=== PATIENT | female | born 1960 | race Caucasian/White ===

== ENCOUNTER 2018-12-08 00:39 | Emergency (ER) | payer BC, OTHER ==
--- NOTE | 2018-12-08 03:24 | ED Physician Documentation ---
<Saleem Fairbanks - Last Filed: 12/08/18 07:56> History of Present Illness - Stated complaint Stated Complaint: WEAKNESS - Chief complaint Chief Complaint: MHE - History obtained from History obtained from: Patient, Family (zfgabq-[id number] (present at bedside)) - History of Present Illness Timing: How many weeks ago (3-4) Pain level now: 0 Improved by: some improvement after restarting medications yesterday - Additonal information Additional information: most of HPI is given by qbinqo-gs-smn; patient has difficulty in articulating HPI due to underlying psychiatric issue. Patient does seem to indicate to me that she feels she needs an adjustment in her medications. Patient's zaysqs-fe-okc says that family recently became aware that patient had stopped taking her medications. They noticed patient was exhibiting increasingly odd behavior over the past 3-4 weeks, such as increasingly frequent and persistent perry, mandaeism preoccupations, wearing odd clothing that were uncharacteristic for patient. Patient stopped seeing her mental health provider last April. Yesterday, twaste-xa-zcu took patient to ED at [facility]) where she was T+R from the ED. Blood tests and UA were unremarkable except for low sodium; she was given IV fluids and cleared for discharge. Zmaqcr-wq-dng says that prescriptions were provided for seroquel, depakote, temazepam, and lorazepam, and that she was given doses of seroquel and lorazepam in ED. On the drive home back to [facility], patient became increasingly anxious and upon getting home, said she wanted to go to ED. Azmjjv-sy-sfs drove patient to ED when patient said she was going to drive herself to ED. Review of Systems Neurologic: denies: Headache Psychiatric: reports: Hallucinations (auditory (voice in head that prevents her from sleeping for months)), Anxiety, Insomnia. denies: Depressed, Suicidal, Homicidal PD PAST MEDICAL HISTORY - Past Medical History Past Medical History: Yes Psych: Depression, Other - Past Surgical History Past Surgical History: No - Present Medications Home Medications: Ambulatory Orders Medication Instructions Recorded Confirmed QUEtiapine [SEROquel] 25 mg PO ONCE 10/21/13 10/21/13 Temazepam 7.5 mg PO 10/21/13 10/21/13 Risperidone [Risperdal M-Tab] 0.5 mg PO Q8HR 10/28/13 10/28/13 Divalproex Sodium [Depakote] 500 mg PO BID #30 tablet. 12/08/18 QUEtiapine [SEROquel] 100 mg PO BID #30 tablet 12/08/18 - Allergies Allergies/Adverse Reactions: Allergies Allergy/AdvReac Type Severity Reaction Status Date / Time No Known Drug Allergies Allergy Verified 10/28/13 18:08 - Social History Does the pt smoke?: No Smoking Status: Never smoker Does the pt drink ETOH?: No Does the pt have substance abuse?: No - Immunizations Immunizations are current?: Yes - POLST Patient has POLST: No PD ED PE NORMAL - Vitals Vital signs reviewed: Yes - General General: Alert and oriented X 3, No acute distress, Well developed/nourished - HEENT HEENT: PERRL, EOMI, Moist mucous membranes - Cardiac Cardiac: RRR, No murmur - Respiratory Respiratory: No respiratory distress, Clear bilaterally - Abdomen Abdomen: Soft, Non tender - Derm Derm: Normal color, Warm and dry Results - Vitals Vitals: Vital Signs - 24 hr 12/08/18 12/08/18 00:52 02:52 Temperature 36.5 C 36.7 C Heart Rate 94 85 Respiratory 18 18 Rate Blood Pressure 128/85 H 128/88 H O2 Saturation 98 98 Oxygen O2 Source Room air PD MEDICAL DECISION MAKING - ED course Complexity details: reviewed old records (records from [facility] faxed to me, reviewed including test results from yesterday), considered differential, d/w patient, d/w family ED course: Patient and family are chiefly concerned whether the medications she is currently on are adequate and appropriate. Zlxxuk-ou-uhv says patient has had "bad experience" with "being committed" and thus patient is worried she will be held against her will. I offered telepsych consult and they are interested in this option. I signed the case out to oncoming ED MD (Dr. Stiles) at end of my shift, awaiting telepsych consult Departure - Departure Disposition: 01 Home, Self Care Clinical Impression: Bipolar affective disorder Qualifiers: Active/Remission status: currently active Current bipolar episode type: manic Current episode severity: severe Psychotic features: without psychotic features Qualified Code(s): F31.13 - Bipolar disorder, current episode manic without psychotic features, severe Condition: Stable Instructions: ED Manic Depression Follow-Up: Your, doctor [Other] Prescriptions: Divalproex Sodium [Depakote] 500 mg PO BID #30 tablet. QUEtiapine [SEROquel] 100 mg PO BID #30 tablet <Anthony Stiles - Last Filed: 12/08/18 12:24> History of Present Illness - Additonal information Additional information: most of HPI is given by zjcjir-ks-zin; patient has difficulty in articulating HPI due to underlying psychiatric issue. Patient does seem to indicate to me that she feels she needs an adjustment in her medications. Patient's pwahus-zu-rqa says that family recently became aware that patient had stopped taking her medications. They noticed patient was exhibiting increasingly odd behavior over the past 3-4 weeks, such as increasingly frequent and persistent perry, mandaeism preoccupations, wearing odd clothing that were uncharacteristic for patient. Patient stopped seeing her mental health provider last April. Yesterday, etvpdi-du-lxi took patient to ED at [facility] where she was T+R from the ED. Blood tests and UA were unremarkable except for low sodium; she was given IV fluids and cleared for discharge. Pqtgqt-kz-adp says that prescriptions were provided for seroquel, depakote, temazepam, and lorazepam, and that she was given doses of seroquel and lorazepam in ED. On the drive home back to [facility], patient became increasingly anxious and upon getting home, said she wanted to go to ED. Exkjqf-li-gnn drove patient to ED when patient said she was going to drive herself to ED. Results - Vitals Vitals: Vital Signs - 24 hr 12/08/18 12/08/18 00:52 02:52 Temperature 36.5 C 36.7 C Heart Rate 94 85 Respiratory 18 18 Rate Blood Pressure 128/85 H 128/88 H O2 Saturation 98 98 Oxygen O2 Source Room air PD MEDICAL DECISION MAKING - ED course ED course: Patient and family are chiefly concerned whether the medications she is currently on are adequate and appropriate. Cysjjj-cy-jrl says patient has had "bad experience" with "being committed" and thus patient is worried she will be held against her will. I offered telepsych consult and they are interested in this option. I signed the case out to oncoming ED MD (Dr. Stiles) at end of my shift, awaiting telepsych consult Tele-psych consultation with Dr. Tristan has revealed the patient to be in a moderate to severe perry with bipolar affective disorder and he has recommended increased doses of medications which the patient has taken. He recommends Depakote 500 twice daily and Seroquel 100 twice daily. These were prescribed for the patient and she has follow-up with a psychiatrist planned.
--- NOTE | 2018-12-08 12:20 | TELEPSYCH PHYS NOTE ---
Telepsych Note - CHIEF COMPLAINT/HX OF PRESENT ILLNESS Cheif Complaint and History of Present Illness: Patient was interviewed using live video with the assistance of on-site staff. Patient Location: [facility] ED Telepsychiatrist Location: [place] Telepsych[facility] Evaluation Shwana Patel 1960 ID/CC/HPI: 57 year-old female with hx bipolar disorder presents to the ED BIB family due to concerns about odd behavior over the last 3-4 weeks including insomnia with high energy, rapid speech, religion preoccupation, wearing odd clothing, impulsive and excessive spending, anxiety, insomnia, and AH voices of goodness in the setting of several months of medication non-compliance. At this time pt is calm and cooperative but she demonstrates rapid/rambling speech. She denies SI/HI/, maintains future orientation and motivation for OP MH treatment. She is fixated on her chronic insomnia. No filemon delusions or thought disorder. She was restarted on low doses of Seroquel and Depakote at [facility] yesterday. 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 Recommendations: 1. D/C to home 2. Rx Seroquel 100mg PO BID 3. Rx Depakote 500mg PO BID 4. D/C Remeron and all other psychotropics 5. Follow-up with OP MH resources urgently Thanks for inviting us to participate in the care of this patient. Douglas Mann MD 12/08/18 @ 13:44 ET - PSYCHIATRIC HX/TREATMENT HX Psychiatric: Depression, Other - MEDICAL HX Does the pt have a hx of MRSA?: No Is Patient ?: No - HOME MEDICATIONS Home Meds (as last confirmed): Patient History Medication Instructions Recorded Confirmed QUEtiapine [SEROquel] 25 mg PO ONCE 10/21/13 10/21/13 Temazepam 7.5 mg PO 10/21/13 10/21/13 Risperidone [Risperdal M-Tab] 0.5 mg PO Q8HR 10/28/13 10/28/13 - ALLERGIES Allergies (as last confirmed): Allergies Allergy/AdvReac Type Severity Reaction Status Date / Time No Known Drug Allergies Allergy Verified 10/28/13 18:08 - TIME SPENT & PROVIDER LOCATION Telepsych consultation conducted via videoconferencing: Yes
[2018-12-08 12:28] VITALS: BP 119/86
== END 2018-12-08 12:31 | disposition home or self-care (01) ==
LOC: ED 00:39
DX: F31.89 Other bipolar disorder (principal); Z91.14 Patient's other noncompliance with medication regimen
CPT/HCPCS: 99283; G0425; Q3014

== ENCOUNTER 2019-02-09 06:53 | Outpatient (CLI) | payer OTHER | END 2019-02-09 06:54 | disposition short-term general hospital (02) | LOC: EMS 06:53 | PROVIDERS: ATTEND Surgery | DX: T43.592A Poisoning by other antipsychotics and neuroleptics, intentional self-harm, initial encounter (principal); R53.83 Other fatigue; R26.81 Unsteadiness on feet | CPT/HCPCS: A0425; A0427 ==

== ENCOUNTER 2019-02-14 13:50 | Outpatient (CLI) | payer SELFPAY | END 2019-02-14 13:51 | disposition EMS.NT | LOC: EMS 13:50 | PROVIDERS: ATTEND Surgery | DX: R45.89 Other symptoms and signs involving emotional state (principal) ==

== ENCOUNTER 2019-02-19 15:21 | Outpatient (CLI) | payer OTHER | END 2019-02-19 15:22 | disposition EMS.NT | LOC: EMS 15:21 | PROVIDERS: ATTEND Surgery | DX: R46.89 Other symptoms and signs involving appearance and behavior (principal) ==

== ENCOUNTER 2019-02-19 17:17 | Emergency (ER) | payer OTHER ==
[2019-02-19 18:09] LABS: MUDS CUTOFF CONCENTRATIONS CUTOFF CONC BELOW:
[2019-02-19 18:11] LABS: BILIRUBIN,URINE NEGATIVE (NEGATIVE); GLUCOSE, URINE (UA) NEGATIVE (NEGATIVE); KETONES,URINE (UA) NEGATIVE (NEGATIVE); LEUKOCYTE ESTERASE, URINE NEGATIVE (NEGATIVE); NITRITE,URINE NEGATIVE (NEGATIVE); OCCULT BLOOD,URINE SMALL (NEGATIVE); PH,URINE 5.5 PH (5.0-7.5); PROTEIN,URINE NEGATIVE (NEGATIVE); UROBILINOGEN,URINE 0.2 (NORMAL) E.U./dL (NORMAL)
[2019-02-19 18:13] LABS: CLARITY,URINE CLEAR (CLEAR)
[2019-02-19 18:18] LABS: BACTERIA,URINE None Seen /HPF (None Seen); RBC,URINE 0-5 /HPF (0-5); SQUAMOUS EPITHELIAL CELL,UR NONE SEEN (<= Few)
[2019-02-19 18:19] LABS: BASOPHILS # (AUTO) 0.1 10^3/uL (0.0-0.1); BASOPHILS % (AUTO) 0.6 %; EOSINOPHILS # (AUTO) 0.1 10^3/uL (0.0-0.7); EOSINOPHILS % (AUTO) 1.1 %; HGB - HEMOGLOBIN 12.1 g/dL (12.0-16.0); LYMPHOCYTES # (AUTO) 2.2 10^3/uL (1.5-3.5); LYMPHOCYTES % (AUTO) 23.7 %; MEAN CORPUSCULAR HEMOGLOBIN 28.6 pg (27.0-31.0); MEAN CORPUSCULAR HGB CONC 34.2 g/dL (32.0-36.0); MEAN CORPUSCULAR VOLUME 83.6 fL (81.0-99.0); MEAN PLATELET VOLUME 6.9 fL (7.9-10.8); MONOCYTES # (AUTO) 0.6 10^3/uL (0.0-1.0); MONOCYTES % (AUTO) 6.8 %; NEUTROPHILS # (AUTO) 6.3 10^3/uL (1.5-6.6); NEUTROPHILS % (AUTO) 67.8 %; PLT - PLATELET COUNT 263 10^3/uL (130-450); RED BLOOD COUNT 4.25 10^6/uL (4.20-5.40); RED CELL DISTRIBUTION WIDTH 15.9 % (12.0-15.0); WHITE BLOOD COUNT 9.3 x10^3/uL (4.8-10.8)
[2019-02-19 18:25] LABS: AMPHETAMINE SCREEN,URINE NEGATIVE (NEGATIVE); BENZODIAZEPINES SCREEN, URINE NEGATIVE (NEGATIVE); COCAINE SCREEN URINE NEGATIVE (NEGATIVE); METHADONE SCREEN, URINE NEGATIVE (NEGATIVE); METHAMPHETAMINES SCREEN, URINE NEGATIVE (NEGATIVE); OPIATE SCREEN, URINE NEGATIVE (NEGATIVE); OXYCODONE SCREEN, URINE NEGATIVE (NEGATIVE); PROPOXYPHENE SCREEN, URINE NEGATIVE (NEGATIVE); TRICYCLIC ANTIDEPRESSANT,URINE NEGATIVE (NEGATIVE)
[2019-02-19 18:34] LABS: ACETAMINOPHEN < 10 ug/mL (10-30); ALBUMIN 3.8 g/dL (3.2-5.5); ALBUMIN/GLOBULIN RATIO 1.2 (1.0-2.2); ALKALINE PHOSPHATASE 60 IU/L (42-121); ALT ALANINE AMINOTRANSFERASE 31 IU/L (10-60); AST ASPARTATE AMINOTRANSFERASE 22 IU/L (10-42); BILIRUBIN,TOTAL 0.5 mg/dL (0.2-1.0); BUN - BLOOD UREA NITROGEN 16 mg/dL (6-20); CALCIUM 9.1 mg/dL (8.5-10.3); CARBON DIOXIDE - CO2 22 mmol/L (21-32); CHLORIDE 97 mmol/L (101-111); CREATININE 0.6 mg/dL (0.4-1.0); GFR - MDRD 103 (>89); GLUCOSE 106 mg/dL (70-100); LIPASE 40 U/L (22-51); SALICYLATE < 6.0 mg/dL; SODIUM 132 mmol/L (135-145); TOTAL PROTEIN 7.1 g/dL (6.7-8.2)
--- NOTE | 2019-02-19 19:37 | ED Physician Documentation ---
PD HPI MHE - Stated complaint Stated Complaint: MHE - Chief complaint Chief Complaint: MHE - History obtained from History obtained from: Patient, Family - History of Present Illness Primary symptom: Suicidal ideation, Other (insomnia, pressured speech) Contributing factors: Family - Treatment prior to arrival Treatment prior to arrival: states she takes her regular meds though family cannot confirm - Additional information Additional information: Pt lives at home alone. She has a hx of bipolar disorder and is on olanzapine, valproic acid and benzos. Her family reports that she has been having bizarre behaviors not sleeping and spending lots of money. There was a report that she threatened SI on [employer]. Pt denies this. Also denies drug or alcohol abuse. Denies SI to me at this time. Review of Systems Ten Systems: 10 systems reviewed and negative Constitutional: reports: Reviewed and negative. denies: Fever Cardiac: reports: Reviewed and negative Respiratory: reports: Reviewed and negative GI: reports: Reviewed and negative Musculoskeletal: reports: Reviewed and negative Neurologic: reports: Reviewed and negative Psychiatric: reports: Depressed, Suicidal, Anxiety, Insomnia PD PAST MEDICAL HISTORY - Past Medical History Past Medical History: Yes Psych: Depression, Other - Past Surgical History Past Surgical History: No - Present Medications Home Medications: Ambulatory Orders Medication Instructions Recorded Confirmed QUEtiapine [SEROquel] 25 mg PO ONCE 10/21/13 10/21/13 RX: Temazepam 7.5 mg PO 10/21/13 10/21/13 Risperidone [Risperdal M-Tab] 0.5 mg PO Q8HR 10/28/13 10/28/13 Divalproex Sodium [Depakote] 500 mg PO BID #30 tablet. 12/08/18 QUEtiapine [SEROquel] 100 mg PO BID #30 tablet 12/08/18 - Allergies Allergies/Adverse Reactions: Allergies Allergy/AdvReac Type Severity Reaction Status Date / Time No Known Drug Allergies Allergy Verified 10/28/13 18:08 - Social History Does the pt smoke?: No Smoking Status: Never smoker Does the pt drink ETOH?: No Does the pt have substance abuse?: No - Immunizations Immunizations are current?: Yes - POLST Patient has POLST: No PD ED PE NORMAL - Vitals Vital signs reviewed: Yes - General General: Alert and oriented X 3, No acute distress, Well developed/nourished - HEENT HEENT: Atraumatic - Neck Neck: Supple, no meningeal sign - Cardiac Cardiac: RRR - Respiratory Respiratory: No respiratory distress - Abdomen Abdomen: Soft, Non distended - Female Female : Deferred - Rectal Rectal: Deferred - Derm Derm: Normal color, Warm and dry, No rash - Neuro Neuro: Alert and oriented X 3 Eye Opening: Spontaneous Motor: Obeys Commands Verbal: Oriented GCS Score: 15 - Psych Psych: Other (some pressured speech, no obvious hallucinations or delusions, pt denies any symptoms) Results - Vitals Vitals: Vital Signs - 24 hr 02/19/19 02/19/19 17:22 21:18 Temperature 36.5 C 36.5 C Heart Rate 99 100 Respiratory 16 17 Rate Blood Pressure 144/87 H 147/71 H O2 Saturation 99 97 Oxygen O2 Source Room air - Labs Labs: Laboratory Tests 02/19/19 02/19/19 02/19/19 17:28 18:01 18:01 WBC 9.3 RBC 4.25 Hgb 12.1 Hct 35.5 L MCV 83.6 MCH 28.6 MCHC 34.2 RDW 15.9 H Plt Count 263 MPV 6.9 L Neut # (Auto) 6.3 Lymph # (Auto) 2.2 Liberty # (Auto) 0.6 Eos # (Auto) 0.1 Baso # (Auto) 0.1 Absolute Nucleated RBC 0.01 Nucleated RBC % 0.1 Sodium 132 L Potassium 4.0 Chloride 97 L Carbon Dioxide 22 Anion Gap 13.0 BUN 16 Creatinine 0.6 Estimated GFR (MDRD) 103 Glucose 106 H Calcium 9.1 Total Bilirubin 0.5 AST 22 ALT 31 Alkaline Phosphatase 60 Total Protein 7.1 Albumin 3.8 Globulin 3.3 Albumin/Globulin Ratio 1.2 Lipase 40 TSH Urine Color YELLOW Urine Clarity CLEAR Urine pH 5.5 Ur Specific Huntley <=1.005 Urine Protein NEGATIVE Urine Glucose (UA) NEGATIVE Urine Ketones NEGATIVE Urine Occult Blood SMALL H Urine Nitrite NEGATIVE Urine Bilirubin NEGATIVE Urine Urobilinogen 0.2 (NORMAL) Ur Leukocyte Esterase NEGATIVE Urine RBC 0-5 Urine WBC 0-3 Ur Squamous Epith Cells NONE SEEN Urine Bacteria None Seen Ur Microscopic Review INDICATED Urine Culture Comments NOT INDICATED Last Dose Date Last Dose Time Salicylates < 6.0 Urine Opiates Screen NEGATIVE Ur Oxycodone Screen NEGATIVE Urine Methadone Screen NEGATIVE Ur Propoxyphene Screen NEGATIVE Acetaminophen < 10 L Ur Barbiturates Screen NEGATIVE Valproic Acid Ur Tricyclics Screen NEGATIVE Ur Phencyclidine Scrn NEGATIVE Ur Amphetamine Screen NEGATIVE U Methamphetamines Scrn NEGATIVE U Benzodiazepines Scrn NEGATIVE Urine Cocaine Screen NEGATIVE U Cannabinoids Screen NEGATIVE Ethyl Alcohol < 5.0 02/19/19 02/19/19 18:01 18:01 WBC RBC Hgb Hct MCV MCH MCHC RDW Plt Count MPV Neut # (Auto) Lymph # (Auto) Liberty # (Auto) Eos # (Auto) Baso # (Auto) Absolute Nucleated RBC Nucleated RBC % Sodium Potassium Chloride Carbon Dioxide Anion Gap BUN Creatinine Estimated GFR (MDRD) Glucose Calcium Total Bilirubin AST ALT Alkaline Phosphatase Total Protein Albumin Globulin Albumin/Globulin Ratio Lipase TSH 2.89 Urine Color Urine Clarity Urine pH Ur Specific Huntley Urine Protein Urine Glucose (UA) Urine Ketones Urine Occult Blood Urine Nitrite Urine Bilirubin Urine Urobilinogen Ur Leukocyte Esterase Urine RBC Urine WBC Ur Squamous Epith Cells Urine Bacteria Ur Microscopic Review Urine Culture Comments Last Dose Date Not Reportable Last Dose Time Not Reportable Salicylates Urine Opiates Screen Ur Oxycodone Screen Urine Methadone Screen Ur Propoxyphene Screen Acetaminophen Ur Barbiturates Screen Valproic Acid 85.3 Ur Tricyclics Screen Ur Phencyclidine Scrn Ur Amphetamine Screen U Methamphetamines Scrn U Benzodiazepines Scrn Urine Cocaine Screen U Cannabinoids Screen Ethyl Alcohol stable labs PD MEDICAL DECISION MAKING - ED course Complexity details: reviewed results, considered differential, d/w patient, d/w family ED course: ddx - manic depression, SI, electrolyte abnormality, valproic acid toxicity or underdosing, drug abuse 58 y/o F with manic depression, pressured speech reports of insomnia and SI Pt medically cleared and awaiting telepsych eval Telepsych evaluated the pt and feel she has familial and friend social support and is reasonable, compliant with meds, stable and not suicidal. I agree and feel she is stable for outpt f/u. Departure - Departure Disposition: 01 Home, Self Care Clinical Impression: Bipolar disorder Condition: Stable Record reviewed to determine appropriate education?: Yes Instructions: ED Manic Depression Follow-Up: your, doctor [Other] Discharge Date/Time: 02/19/19 21:21
[2019-02-19 19:44] LABS: VALPROIC ACID (DEPAKOTE) 85.3 ug/mL
--- NOTE | 2019-02-19 21:07 | TELEPSYCH PHYS NOTE ---
Telepsych Note - CHIEF COMPLAINT/HX OF PRESENT ILLNESS Cheif Complaint and History of Present Illness: ID/CC: This is a 58 yo female who presents c history of bipolar disorder and depression. HPI: She is brought by family who are concerned due to her bizarre behavior and noncompliance c medications.She was seen c two friends who were present during the interview and give collateral. She is on VPA and Zyprexa The pt indicates that she has a history of multiple hospitalizations in the past. She states that her medications have recently changed adn that she has a new psychiatrist. She states that she has been taking her meds. She was brought by the finnish rubber who was called by daughter. She istates that she has been taking her medications since her discharge from the hospital about a week ago. She denies any current SI and HI and has no history of suicide attempts. Denies access to firearms, no previous history of suicide attempts. Sleep has been good. Appetite has been good also. Energy level has been OK. Concentration has been OK. Psych history: States that she has been in treatment for about 6 years. Has had several hospitalizations. She states that she has been on multiple medications but that this combination is helpful. On 1000 mg of Depakote, does not know what her Zyprexa dose is. SHx: Lives c 16 yo daughter intermittently. Daughter is supportive. She also has a 28 yo daughter. 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 She denies any substance abuse issues. She is . FHx: Has only the two daughters. Has 8 siblings, 7 of which are alive. Mother is living also. Denies immediate family history of psychiatric illness, substance abuse, suicidal behavior. Med Hx: Denies acute medical problems. MSE: Very pleasant WF who looks about her stated age. She is alert and fully oriented c good hygiene and grooming. Mood is slightly elevated dand speech is rapid somewhat circumstantial thought process although pt became more focussed as the interview progressed. Judgement and insight were basically intact. Memory was intact. Intellect was average. There was no indication of S/H ideation, hallucinations or delusions. Imp: Bipolar Disorder F 31.9 Plan: Cleared for discharge psychiatrically, film writer sees no acute sx warranting intervention at this level. Has social supports and outpt psychiatrist, friends are agreeable to hav pt stay c them and ensure her safety. To continue c current medications. - PSYCHIATRIC HX/TREATMENT HX Psychiatric: Depression, Bipolar disorder, Other - MEDICAL HX Does the pt have a hx of MRSA?: No Neurological History: None Eyes, Ears, Nose, Throat: None Cardiovascular: None Respiratory: None Skin: None Endocrine/Autoimmune: None Gastrointestinal: None Is Patient ?: No Urinary: None Musculoskeletal: None Blood Disorders: None - HOME MEDICATIONS Home Meds (as last confirmed): Patient History Medication Instructions Recorded Confirmed QUEtiapine [SEROquel] 25 mg PO ONCE 10/21/13 10/21/13 Temazepam 7.5 mg PO 10/21/13 10/21/13 Risperidone [Risperdal M-Tab] 0.5 mg PO Q8HR 10/28/13 10/28/13 - ALLERGIES Allergies (as last confirmed): Allergies Allergy/AdvReac Type Severity Reaction Status Date / Time No Known Drug Allergies Allergy Verified 10/28/13 18:08 - TREATMENT/PHARMACOLOGICAL RECOMMENDATION Treatment - Pharmacological - Therapy Recommendations: As noted above. - TIME SPENT & PROVIDER LOCATION Telepsych consultation conducted via videoconferencing: Yes List names and roles of persons who participated in consult: Garrick Zambrano MD Telepsych Provider Location: Garrick Zambrano MD Time Telepsych consult began: 20:30 Time Telepsych consult completed: 21:15
[2019-02-19 21:21] VITALS: BP 147/71
== END 2019-02-19 21:21 | disposition home or self-care (01) ==
LOC: ED 17:17
DX: F31.9 Bipolar disorder, unspecified (principal); R45.851 Suicidal ideations; G47.00 Insomnia, unspecified
CPT/HCPCS: 36415; 80164; 80320; 80329; 81001; 83690; 99283; G0425; Q3014; 80053; 80306; 80307; 81003; 84443; 85025; 87086

== ENCOUNTER 2019-05-06 10:00 | Outpatient (CLI) | payer OTHER ==
[2019-05-06 18:35] LABS: VALPROIC ACID (DEPAKOTE) 90.1 ug/mL
== END 2019-05-06 10:01 | disposition home or self-care (01) ==
LOC: LAB.S 10:00
PROVIDERS: ATTEND Psychiatry & Neurology Psychiatry
DX: Z51.81 Encounter for therapeutic drug level monitoring (principal); Z79.899 Other long term (current) drug therapy
CPT/HCPCS: 36415; 80164

== ENCOUNTER 2019-11-09 09:42 | Outpatient (CLI) | payer OTHER ==
[2019-11-09 17:16] LABS: BASOPHILS # (AUTO) 0.1 10^3/uL (0.0-0.1); BASOPHILS % (AUTO) 0.8 %; EOSINOPHILS # (AUTO) 0.1 10^3/uL (0.0-0.7); EOSINOPHILS % (AUTO) 2.2 %; HGB - HEMOGLOBIN 13.6 g/dL (12.0-16.0); LYMPHOCYTES # (AUTO) 2.6 10^3/uL (1.5-3.5); LYMPHOCYTES % (AUTO) 43.2 %; MEAN CORPUSCULAR HEMOGLOBIN 27.9 pg (27.0-31.0); MEAN CORPUSCULAR HGB CONC 31.3 g/dL (32.0-36.0); MEAN CORPUSCULAR VOLUME 88.9 fL (81.0-99.0); MEAN PLATELET VOLUME 10.6 fL (7.9-10.8); MONOCYTES # (AUTO) 0.4 10^3/uL (0.0-1.0); MONOCYTES % (AUTO) 6.6 %; NEUTROPHILS # (AUTO) 2.8 10^3/uL (1.5-6.6); NEUTROPHILS % (AUTO) 46.7 %; PLT - PLATELET COUNT 220 10^3/uL (130-450); RED BLOOD COUNT 4.88 10^6/uL (4.20-5.40); RED CELL DISTRIBUTION WIDTH 13.5 % (12.0-15.0)
[2019-11-09 17:31] LABS: ALBUMIN 4.1 g/dL (3.2-5.5); ALBUMIN/GLOBULIN RATIO 1.4 (1.0-2.2); ALKALINE PHOSPHATASE 55 IU/L (42-121); ALT ALANINE AMINOTRANSFERASE 25 IU/L (10-60); AST ASPARTATE AMINOTRANSFERASE 21 IU/L (10-42); BILIRUBIN,TOTAL 0.6 mg/dL (0.2-1.0); BUN - BLOOD UREA NITROGEN 16 mg/dL (6-20); CALCIUM 9.4 mg/dL (8.5-10.3); CARBON DIOXIDE - CO2 28 mmol/L (21-32); CHLORIDE 105 mmol/L (101-111); CREATININE 0.8 mg/dL (0.4-1.0); GFR - MDRD 74 (>89); GLUCOSE 104 mg/dL (70-100); GLUCOSE,FASTING 104 mg/dL (70-100); SODIUM 140 mmol/L (135-145); TOTAL PROTEIN 7.1 g/dL (6.7-8.2); VALPROIC ACID (DEPAKOTE) 66.5 ug/mL
[2019-11-09 17:48] LABS: HB2 TOTAL 14.1 g/dL; HEMOGLOBIN A1C 0.6 g/dL
== END 2019-11-09 09:43 | disposition home or self-care (01) ==
LOC: LAB.S 09:42
PROVIDERS: ATTEND Psychiatry & Neurology Psychiatry
DX: F31.9 Bipolar disorder, unspecified (principal); Z51.81 Encounter for therapeutic drug level monitoring; Z79.899 Other long term (current) drug therapy
CPT/HCPCS: 36415; 80053; 80164; 82947; 83036; 85025

== ENCOUNTER 2020-07-08 11:37 | Outpatient (CLI) | payer MEDICAID ==
[2020-07-08 15:23] LABS: BASOPHILS % (AUTO) 0.8 %; EOSINOPHILS # (AUTO) 0.2 10^3/uL (0.0-0.7); EOSINOPHILS % (AUTO) 4.3 %; HGB - HEMOGLOBIN 12.6 g/dL (12.0-16.0); LYMPHOCYTES # (AUTO) 2.1 10^3/uL (1.5-3.5); LYMPHOCYTES % (AUTO) 43.7 %; MEAN CORPUSCULAR HEMOGLOBIN 29.4 pg (27.0-31.0); MEAN CORPUSCULAR HGB CONC 33.4 g/dL (32.0-36.0); MEAN CORPUSCULAR VOLUME 88.1 fL (81.0-99.0); MEAN PLATELET VOLUME 9.8 fL (7.9-10.8); MONOCYTES # (AUTO) 0.4 10^3/uL (0.0-1.0); MONOCYTES % (AUTO) 7.6 %; NEUTROPHILS # (AUTO) 2.1 10^3/uL (1.5-6.6); NEUTROPHILS % (AUTO) 43.4 %; PLT - PLATELET COUNT 217 10^3/uL (130-450); RED BLOOD COUNT 4.28 10^6/uL (4.20-5.40); RED CELL DISTRIBUTION WIDTH 13.3 % (12.0-15.0); WHITE BLOOD COUNT 4.9 x10^3/uL (4.8-10.8)
[2020-07-08 15:24] LABS: ALBUMIN/GLOBULIN RATIO 1.5 (1.0-2.2); ALKALINE PHOSPHATASE 59 IU/L (42-121); ALT ALANINE AMINOTRANSFERASE 14 IU/L (10-60); AST ASPARTATE AMINOTRANSFERASE 18 IU/L (10-42); BILIRUBIN,TOTAL 0.5 mg/dL (0.2-1.0); BUN - BLOOD UREA NITROGEN 11 mg/dL (6-20); CALCIUM 9.1 mg/dL (8.5-10.3); CARBON DIOXIDE - CO2 27 mmol/L (21-32); CHLORIDE 98 mmol/L (101-111); CHOL/HDL RATIO 2.9 (<4.4); CHOLESTEROL 184 mg/dL; CREATININE 0.8 mg/dL (0.4-1.0); GLUCOSE 99 mg/dL (70-100); HDL CHOLESTEROL 63 mg/dL; LDL CHOLESTEROL,CALCULATED 108 mg/dL; LDL/HDL RATIO 1.7 (<4.4); SODIUM 133 mmol/L (135-145); TOTAL PROTEIN 6.6 g/dL (6.7-8.2); VLDL CHOLESTEROL 13 mg/dL
== END 2020-07-08 11:38 | disposition home or self-care (01) ==
LOC: LAB.S 11:37
PROVIDERS: ATTEND Registered Nurse
DX: G47.9 Sleep disorder, unspecified (principal); F31.9 Bipolar disorder, unspecified
CPT/HCPCS: 36415; 80053; 80061; 83721; 84443; 85025

== ENCOUNTER 2020-08-23 11:28 | Outpatient (CLI) | payer OTHER, MEDICAID ==
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
== END 2020-08-23 11:29 | disposition home or self-care (01) ==
LOC: DI.S 11:28
PROVIDERS: ATTEND Chiropractor
DX: M47.812 Spondylosis without myelopathy or radiculopathy, cervical region (principal); M47.816 Spondylosis without myelopathy or radiculopathy, lumbar region; S13.8XXA Sprain of joints and ligaments of other parts of neck, initial encounter; M99.11 Subluxation complex (vertebral) of cervical region; G44.201 Tension-type headache, unspecified, intractable; M99.12 Subluxation complex (vertebral) of thoracic region; M99.14 Subluxation complex (vertebral) of sacral region; M99.15 Subluxation complex (vertebral) of pelvic region; M99.1 Subluxation complex (vertebral)

== ENCOUNTER 2020-10-15 12:01 | Outpatient (CLI) | payer MEDICAID ==
[2020-10-15 18:14] LABS: HEMOGLOBIN A1c% 5.6 % (4.27-6.07)
== END 2020-10-15 12:02 | disposition home or self-care (01) ==
LOC: LAB.S 12:01
PROVIDERS: ATTEND Physician Assistant
DX: K59.09 Other constipation (principal); G47.9 Sleep disorder, unspecified; F31.9 Bipolar disorder, unspecified; R25.1 Tremor, unspecified; Z83.3 Family history of diabetes mellitus
CPT/HCPCS: 36415; 82306; 83036

== ENCOUNTER 2020-12-13 10:57 | Outpatient (CLI) | payer MEDICAID ==
--- NOTE | 2020-12-13 13:34 | DEXA Report ---
PROCEDURE: Dexa Spine and/or Hip INDICATIONS: POST MENOPAUSAL TECHNIQUE: Dual energy x-ray absorptiometry (DXA) was performed on a [employer] System. Regions measur ed are the AP Spine, femoral neck, and if needed forearm. COMPARISON: None. FINDINGS: Lumbar Spine: Bone Mineral Density 1.173 g/cm/cm,T score -0.1, Left Hip: Bone Mineral Density 1.028 g/cm/cm,T score 0.2, Left Femoral Neck: Bone Mineral Density 0.955 g/cm/cm, T score -0.6, (T score greater or equal to -1.0: NORMAL) (T score from -1.1 to -2.4: OSTEOPENIA) (T score less than or equal to -2.5 to: OSTEOPOROSIS) Impression: Normal bone mineral density. Patients with diagnosis of osteoporosis or osteopenia should have regular bone mineral density assess ment. For those eligible for Medicare, routine testing is allowed once every 2 years. Testing frequ ency can be increased for patients who have rapidly progressing disease or for those who are receivin g medical therapy to restore bone mass. Reviewed by: Harlan Burger MD on 12/13/2020 1:32 PM PDT Approved by: Harlan Burger MD on 12/13/2020 1:32 PM PDT Station ID: [id number]
== END 2020-12-13 10:58 | disposition home or self-care (01) ==
LOC: DI 10:57
PROVIDERS: ATTEND Physician Assistant
DX: Z78.0 Asymptomatic menopausal state (principal)

== ENCOUNTER 2020-12-13 12:41 | Outpatient (CLI) | payer MEDICAID ==
--- NOTE | 2020-12-16 07:48 | Mammography Report ---
BILATERAL DIGITAL SCREENING MAMMOGRAM 3D/2D: 12/13/2020 CLINICAL: Routine screening. No prior exams were available for comparison. There are scattered fibroglandular elements in both br easts. There is a new oval asymmetry in the right breast posterior depth central to the nipple seen on the m ediolateral oblique view only 10 cm from the nipple. No other significant masses, calcifications, or other findings are seen in either breast. IMPRESSION: INCOMPLETE: NEEDS ADDITIONAL IMAGING EVALUATION The new oval asymmetry in the right breast is indeterminate. Additional views with possible ultrasou nd are recommended. This exam was interpreted at Station ID: [id number]. NOTE: For mammograms, a report in lay terms will be sent to the patient. Approximately 15% of breast malignancies will not be visualized mammographically. In the management of a palpable breast mass, a negative mammogram must not discourage biopsy of a clinically suspicious lesion. Electronically Signed By: Kleby Collado acr/:12/15/2020 09:45:06 ACR BI-RADS Category 0: Incomplete 3340F PARENCHYMAL PATTERN: (A) - The breast(s) demonstrate(s) scattered fibroglandular densities. BI-RADS CATEGORY: (0) - 0 Unspecified - other recall n/a LATERALITY: (B)
== END 2020-12-13 12:42 | disposition home or self-care (01) ==
LOC: DI.N 12:41
DX: Z12.31 Encounter for screening mammogram for malignant neoplasm of breast (principal); N64.89 Other specified disorders of breast

== ENCOUNTER 2021-01-09 12:38 | Outpatient (CLI) | payer MEDICAID ==
--- NOTE | 2021-01-10 13:17 | Mammography Report ---
UNILATERAL RIGHT DIGITAL DIAGNOSTIC MAMMOGRAM 3D/2D: 01/09/2021 CLINICAL: Patient returns today to evaluate a density in the right breast. Comparison is made to exam dated: 12/13/2020 mammogram - [facility]. There are scat tered fibroglandular elements in right breast. Possible asymmetry in the right breast posterior depth central to the nipple seen on the mediolateral oblique view only is not seen in additional views. No other significant masses or calcifications are seen in the breast. IMPRESSION: NEGATIVE There is no mammographic evidence of malignancy. Asymmetry in the right breast is consistent with overlapping fibroglandular tissue and is benign. A 1 year screening mammogram is recommended. Exam findings were conveyed to the patient. This exam was interpreted at Station ID: [id number]. NOTE: For mammograms, a report in lay terms will be sent to the patient. Approximately 15% of breast malignancies will not be visualized mammographically. In the management of a palpable breast mass, a negative mammogram must not discourage biopsy of a clinically suspicious lesion. Electronically Signed By: Robert Noel M.D. slc/:01/09/2021 13:50:16 ACR BI-RADS Category 1: Negative 3341F PARENCHYMAL PATTERN: (A) - The breast(s) demonstrate(s) scattered fibroglandular densities. BI-RADS CATEGORY: (1) - 1 RECOMMENDATION: (ANNUAL) - Recommend routine annual screening mammography. [id number] 1 year screening LATERALITY: (B)
== END 2021-01-09 12:39 | disposition home or self-care (01) ==
LOC: DI 12:38
PROVIDERS: ATTEND Physician Assistant
DX: R92.8 Other abnormal and inconclusive findings on diagnostic imaging of breast (principal)

== ENCOUNTER 2021-04-20 17:08 | Outpatient (CLI) | payer MEDICAID | END 2021-04-20 17:09 | disposition home or self-care (01) | LOC: COV 17:08 | PROVIDERS: ATTEND Family Medicine | DX: R68.83 Chills (without fever) (principal); R11.10 Vomiting, unspecified; Z20.822 Contact with and (suspected) exposure to COVID-19 ==

== ENCOUNTER 2022-06-26 12:23 | Outpatient (CLI) | payer MEDICARE ==
[2022-06-26 14:16] LABS: BASOPHILS % (AUTO) 0.8 %; EOSINOPHILS # (AUTO) 0.4 10^3/uL (0.0-0.7); EOSINOPHILS % (AUTO) 7.6 %; HCT - HEMATOCRIT 39.8 % (37.0-47.0); HGB - HEMOGLOBIN 12.9 g/dL (12.0-16.0); LYMPHOCYTES # (AUTO) 1.8 10^3/uL (1.5-3.5); LYMPHOCYTES % (AUTO) 35.5 %; MEAN CORPUSCULAR HEMOGLOBIN 27.3 pg (27.0-31.0); MEAN CORPUSCULAR HGB CONC 32.4 g/dL (32.0-36.0); MEAN CORPUSCULAR VOLUME 84.3 fL (81.0-99.0); MEAN PLATELET VOLUME 10.4 fL (7.9-10.8); MONOCYTES # (AUTO) 0.4 10^3/uL (0.0-1.0); MONOCYTES % (AUTO) 7.6 %; NEUTROPHILS # (AUTO) 2.4 10^3/uL (1.5-6.6); NEUTROPHILS % (AUTO) 48.1 %; PLT - PLATELET COUNT 191 10^3/uL (130-450); RED BLOOD COUNT 4.72 10^6/uL (4.20-5.40); RED CELL DISTRIBUTION WIDTH 15.1 % (12.0-15.0)
[2022-06-26 14:36] LABS: ALBUMIN 4.1 g/dL (3.2-5.5); ALBUMIN/GLOBULIN RATIO 1.1 (1.0-2.2); ALKALINE PHOSPHATASE 59 IU/L (42-121); ALT ALANINE AMINOTRANSFERASE 12 IU/L (10-60); AST ASPARTATE AMINOTRANSFERASE 21 IU/L (10-42); BILIRUBIN,TOTAL 0.4 mg/dL (0.2-1.0); BUN - BLOOD UREA NITROGEN 9 mg/dL (6-20); CALCIUM 9.7 mg/dL (8.5-10.3); CARBON DIOXIDE - CO2 29 mmol/L (21-32); CHLORIDE 100 mmol/L (101-111); CHOL/HDL RATIO 3.2 (<4.4); CHOLESTEROL 189 mg/dL; CREATININE 0.7 mg/dL (0.4-1.0); GFR - MDRD 85 (>89); GLUCOSE 95 mg/dL (70-100); HDL CHOLESTEROL 60 mg/dL; LDL CHOLESTEROL,CALCULATED 111 mg/dL; LDL/HDL RATIO 1.9 (<4.4); POTASSIUM 4.5 mmol/L (3.5-5.0); SODIUM 134 mmol/L (135-145); TOTAL PROTEIN 7.8 g/dL (6.7-8.2); TRIGLYCERIDES 90 mg/dL; VLDL CHOLESTEROL 18 mg/dL
[2022-06-26 14:48] LABS: THYROID STIMULATING HORMONE 1.64 uIU/mL (0.34-5.60)
[2022-06-26 14:49] LABS: FREE T3 2.47 pg/mL (2.5-3.9)
[2022-06-26 14:50] LABS: FREE T4 (FREE THYROXINE) 0.68 ng/dL (0.58-1.64)
--- NOTE | 2022-06-26 16:01 | XRAY Report ---
PROCEDURE: Cervical Spine 2 View INDICATIONS: NECK PAIN TECHNIQUE: 3 view(s) of the cervical spine were acquired. COMPARISON: None. FINDINGS: Bones: No fractures or dislocations to the T1 level. The lateral masses of C1 appear intact on the odontoid view. No suspicious bony lesions. Degenerative disc space narrowing, anterior osteophytes and facet hypertrophy in the mid to lower cervical spine results in reversal of normal cervical lordo sis Soft tissues: No prevertebral soft tissue swelling. 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
[2022-06-26 22:13] LABS: ESTIMATED AVERAGE GLUCOSE 114 mg/dL (70-100); HEMOGLOBIN A1c% 5.6 % (4.27-6.07)
== END 2022-06-26 12:24 | disposition home or self-care (01) ==
LOC: DI.S 12:23
PROVIDERS: ATTEND Nurse Practitioner Family
DX: M50.30 Other cervical disc degeneration, unspecified cervical region (principal); E88.81 Metabolic syndrome and other insulin resistance; Z13.220 Encounter for screening for lipoid disorders; R55 Syncope and collapse; Z76.89 Persons encountering health services in other specified circumstances; Z51.81 Encounter for therapeutic drug level monitoring; Z79.899 Other long term (current) drug therapy
CPT/HCPCS: 36415; 80053; 80061; 83036; 83721; 84439; 84443; 84481; 85025

== ENCOUNTER 2022-10-29 11:27 | Outpatient (CLI) | payer MEDICARE | END 2022-10-29 23:59 | disposition critical access hospital (66) | LOC: EMS 11:27 | DX: R40.0 Somnolence (principal); R46.4 Slowness and poor responsiveness; R06.81 Apnea, not elsewhere classified | CPT/HCPCS: A0425; A0427 ==

== ENCOUNTER 2022-10-29 12:02 | Emergency (ER) | payer MEDICARE ==
[2022-10-29 12:45] LABS: BASOPHILS % (AUTO) 0.4 %; EOSINOPHILS # (AUTO) 0.1 10^3/uL (0.0-0.7); EOSINOPHILS % (AUTO) 0.6 %; HCT - HEMATOCRIT 37.6 % (37.0-47.0); HGB - HEMOGLOBIN 11.9 g/dL (12.0-16.0); LYMPHOCYTES # (AUTO) 2.4 10^3/uL (1.5-3.5); LYMPHOCYTES % (AUTO) 24.6 %; MEAN CORPUSCULAR HEMOGLOBIN 27.5 pg (27.0-31.0); MEAN CORPUSCULAR HGB CONC 31.6 g/dL (32.0-36.0); MEAN PLATELET VOLUME 8.9 fL (7.9-10.8); MONOCYTES # (AUTO) 1.3 10^3/uL (0.0-1.0); MONOCYTES % (AUTO) 13.4 %; NEUTROPHILS # (AUTO) 5.8 10^3/uL (1.5-6.6); NEUTROPHILS % (AUTO) 60.2 %; PLT - PLATELET COUNT 146 10^3/uL (130-450); RED BLOOD COUNT 4.32 10^6/uL (4.20-5.40); RED CELL DISTRIBUTION WIDTH 14.7 % (12.0-15.0); WHITE BLOOD COUNT 9.6 x10^3/uL (4.8-10.8)
[2022-10-29 12:59] LABS: ACETAMINOPHEN < 10 ug/mL (10-30); ALBUMIN 3.2 g/dL (3.2-5.5); ALBUMIN/GLOBULIN RATIO 0.9 (1.0-2.2); ALKALINE PHOSPHATASE 48 IU/L (42-121); ALT ALANINE AMINOTRANSFERASE 46 IU/L (10-60); AST ASPARTATE AMINOTRANSFERASE 124 IU/L (10-42); BILIRUBIN,TOTAL 0.7 mg/dL (0.2-1.0); BUN - BLOOD UREA NITROGEN 22 mg/dL (6-20); CARBON DIOXIDE - CO2 29 mmol/L (21-32); CHLORIDE 103 mmol/L (101-111); CREATININE 0.6 mg/dL (0.4-1.0); ETOH - ETHANOL < 5.0 mg/dL; GFR - MDRD 102 (>89); GLUCOSE 112 mg/dL (70-100); LIPASE 27 U/L (22-51); POTASSIUM 3.8 mmol/L (3.5-5.0); SALICYLATE < 6.0 mg/dL; SODIUM 144 mmol/L (135-145); TOTAL PROTEIN 6.8 g/dL (6.7-8.2)
[2022-10-29] MEDS ORDERED: SODIUM CHLORIDE 0.9% 1,000 ML IV STA ×2 (13:10)
--- NOTE | 2022-10-29 13:38 | CT Report ---
PROCEDURE: HEAD WO INDICATIONS: fall, head/neck injury TECHNIQUE: Noncontrast 4.5 mm thick angled axial sections acquired from the foramen magnum to the vertex. For r adiation dose reduction, the following was used: automated exposure control, adjustment of mA and/or kV according to patient size. COMPARISON: None. FINDINGS: Image quality: Excellent. CSF spaces: Basal cisterns are patent. No extra-axial fluid collections. Ventricles are normal in size and shape. Brain: No midline shift. No intracranial masses or hemorrhage. [place]-white matter interface is norm al. Skull and face: Calvarium and visualized facial bones are intact, without suspicious lesions. Sinuses: Left maxillary sinus and left ethmoid air cell aerated secretions and mucosal thickening. Re maining paranasal sinuses and mastoids are clear. IMPRESSION: No acute intracranial abnormality. Aerated left maxillary sinus and left ethmoid air cell secretions; correlate for acute sinusitis. Reviewed by: Dwayne Colorado MD on 10/29/2022 1:37 PM PST Approved by: Dwayne Colorado MD on 10/29/2022 1:37 PM PST Station ID: [id number]
--- NOTE | 2022-10-29 13:40 | CT Report ---
PROCEDURE: CERVICAL SPINE WO INDICATIONS: fall, head/neck injury TECHNIQUE: Noncontrast 3 mm thick sections acquired from the skull base to the T4 level. Sagittal and coronal r eformats were then constructed. For radiation dose reduction, the following was used: automated exp osure control, adjustment of mA and/or kV according to patient size. COMPARISON: None. FINDINGS: Image quality: Excellent. Bones: No fractures or dislocations. Visualized superior ribs are intact. Soft tissues: Prevertebral soft tissues are normal in thickness. No paravertebral hematomas. No ap ical pneumothoraces. IMPRESSION: No acute finding. Reviewed by: Dwayne Colorado MD on 10/29/2022 1:38 PM PST Approved by: Dwayne Colorado MD on 10/29/2022 1:38 PM PST Station ID: [id number]
[2022-10-29 13:42] LABS: MUDS CUTOFF CONCENTRATIONS CUTOFF CONC BELOW:
--- NOTE | 2022-10-29 13:50 | ED Physician Documentation ---
PD HPI ALTERED MENTAL STATUS - Stated complaint Stated Complaint: ALOC - Chief complaint Chief Complaint: Neuro - History obtained from History obtained from: Patient, EMS - History of Present Illness Basline status: Alert and oriented X 3 - Additional information Additional information: Patient is a 61-year-old female brought in by EMS today. Her friend accompanied her. Reportedly she has been on the ground at home for the past 2 days. Friends found her last night. Gave her her normal psychiatric medications. She seems improved today but is still drowsy. Her friend states that they contacted her psychiatrist who was concerned about potential medication withdrawal and recommended that she come to the emergency department. Patient lives alone. Ap parently the patient has been laying on a hardwood floor for the past 2 days next to her bed. Unknown if she fell, struck her head. No vomiting. No seizure activity that is known. Review of Systems Constitutional: denies: Fever, Chills Respiratory: denies: Cough GI: denies: Nausea, Vomiting, Diarrhea Skin: denies: Rash Musculoskeletal: denies: Neck pain, Back pain Neurologic: denies: Headache PD PAST MEDICAL HISTORY - Past Medical History Cardiovascular: None Respiratory: None Neuro: None Endocrine/Autoimmune: None GI: None : None HEENT: None Psych: Depression, Other Musculoskeletal: None Derm: None - Past Surgical History Past Surgical History: No - Present Medications Home Medications: Ambulatory Orders Medication Instructions Recorded Confirmed Temazepam 7.5 mg PO 10/21/13 10/21/13 Risperidone [Risperdal M-Tab] 0.5 mg PO Q8HR 10/28/13 10/28/13 QUEtiapine [SEROquel] 100 mg PO BID #30 tablet 12/08/18 Amantadine [Symmetrel] 100 mg PO DAILY 10/29/22 10/29/22 Baclofen 20 mg PO QID PRN 10/29/22 10/29/22 Dantrolene Sodium 200 mg ORAL BID 10/29/22 10/29/22 Dantrolene Sodium [Dantrium] 25 mg PO Q6HR 10/29/22 10/29/22 Divalproex ER [Depakote ER] 750 mg PO DAILY PM 10/29/22 10/29/22 Pregabalin [Lyrica] 200 mg PO BID 10/29/22 10/29/22 Quetiapine Fumarate [Seroquel] 200 mg PO HS 10/29/22 10/29/22 clonazePAM [Clonazepam] 0.5 mg PO BID 10/29/22 10/29/22 lamoTRIgine [LaMICtal] 25 mg PO DAILY 10/29/22 10/29/22 metFORMIN [Glucophage] 500 mg PO DAILY 10/29/22 10/29/22 - Allergies Allergies/Adverse Reactions: Allergies Allergy/AdvReac Type Severity Reaction Status Date / Time No Known Drug Allergies Allergy Unverified 10/29/22 11:59 - Social History Does the pt smoke?: No Smoking Status: Never smoker Does the pt drink ETOH?: No Does the pt have substance abuse?: No - Immunizations Immunizations are current?: Yes - POLST Patient has POLST: No PD ED PE NORMAL - Vitals Vital signs reviewed: Yes - General General: No acute distress, Well developed/nourished - HEENT HEENT: Atraumatic, PERRL, EOMI, Moist mucous membranes - Neck Neck: Supple, no meningeal sign, No bony TTP - Cardiac Cardiac: RRR, Strong equal pulses - Respiratory Respiratory: No respiratory distress, Clear bilaterally - Abdomen Abdomen: Soft, Non tender, Non distended - Back Back: No spinal TTP, Other (There is a superficial sacral pressure ulcer.) - Derm Derm: Warm and dry, No rash - Extremities Extremities: No edema, No calf tenderness / cord - Neuro Neuro: Other (Drowsy but easily arousable. Oriented x3.) - Psych Psych: Normal mood, Normal affect Results - Vitals Vitals: Vital Signs - 24 hr 10/29/22 10/29/22 10/29/22 11:55 12:24 12:39 Temperature 36.6 C Heart Rate 98 86 88 Respiratory 18 18 18 Rate Blood Pressure 116/65 116/65 113/68 O2 Saturation 99 99 98 10/29/22 10/29/22 10/29/22 13:10 13:41 14:00 Temperature Heart Rate 94 86 82 Respiratory 20 18 11 L Rate Blood Pressure 104/65 124/64 124/64 O2 Saturation 99 98 98 10/29/22 10/29/22 10/29/22 14:38 15:09 16:43 Temperature Heart Rate 83 83 90 Respiratory 18 18 17 Rate Blood Pressure 105/72 114/67 114/68 O2 Saturation 97 98 96 Oxygen O2 Source Room air - Labs Labs: Laboratory Tests 10/29/22 10/29/22 10/29/22 12:38 12:38 12:38 WBC 9.6 RBC 4.32 Hgb 11.9 L Hct 37.6 MCV 87.0 MCH 27.5 MCHC 31.6 L RDW 14.7 Plt Count 146 MPV 8.9 Neut # (Auto) 5.8 Lymph # (Auto) 2.4 [place] # (Auto) 1.3 H Eos # (Auto) 0.1 Baso # (Auto) 0.0 Absolute Nucleated RBC 0.00 Nucleated RBC % 0.0 Sodium 144 Potassium 3.8 Chloride 103 Carbon Dioxide 29 Anion Gap 12.0 BUN 22 H Creatinine 0.6 Estimated GFR (MDRD) 102 Glucose 112 H Calcium 10.0 Total Bilirubin 0.7 AST 124 H ALT 46 Alkaline Phosphatase 48 Total Creatine Kinase Total Protein 6.8 Albumin 3.2 Globulin 3.6 Albumin/Globulin Ratio 0.9 L Lipase 27 TSH 3.19 Urine Color Urine Clarity Urine pH Ur Specific [place] Urine Protein Urine Glucose (UA) Urine Ketones Urine Occult Blood Urine Nitrite Urine Bilirubin Urine Urobilinogen Ur Leukocyte Esterase Urine RBC Urine WBC Ur Squamous Epith Cells Urine Bacteria Ur Microscopic Review Urine Culture Comments Salicylates < 6.0 Urine Opiates Screen Ur Oxycodone Screen Urine Methadone Screen Ur Propoxyphene Screen Acetaminophen < 10 L Ur Barbiturates Screen Ur Tricyclics Screen Ur Phencyclidine Scrn Ur Amphetamine Screen U Methamphetamines Scrn U Benzodiazepines Scrn Urine Cocaine Screen U Cannabinoids Screen Ethyl Alcohol < 5.0 10/29/22 10/29/22 12:38 13:31 WBC RBC Hgb Hct MCV MCH MCHC RDW Plt Count MPV Neut # (Auto) Lymph # (Auto) [place] # (Auto) Eos # (Auto) Baso # (Auto) Absolute Nucleated RBC Nucleated RBC % Sodium Potassium Chloride Carbon Dioxide Anion Gap BUN Creatinine Estimated GFR (MDRD) Glucose Calcium Total Bilirubin AST ALT Alkaline Phosphatase Total Creatine Kinase 1808 H* Total Protein Albumin Globulin Albumin/Globulin Ratio Lipase TSH Urine Color DARK YELLOW Urine Clarity HAZY Urine pH 6.0 Ur Specific [place] 1.025 Urine Protein TRACE Urine Glucose (UA) NEGATIVE Urine Ketones 40 H Urine Occult Blood MODERATE H Urine Nitrite NEGATIVE Urine Bilirubin NEGATIVE Urine Urobilinogen 0.2 (NORMAL) Ur Leukocyte Esterase NEGATIVE Urine RBC 6-10 H Urine WBC 4-5 Ur Squamous Epith Cells RARE Squamous Urine Bacteria Rare Ur Microscopic Review INDICATED Urine Culture Comments NOT INDICATED Salicylates Urine Opiates Screen NEGATIVE Ur Oxycodone Screen NEGATIVE Urine Methadone Screen NEGATIVE Ur Propoxyphene Screen NEGATIVE Acetaminophen Ur Barbiturates Screen NEGATIVE Ur Tricyclics Screen POSITIVE H Ur Phencyclidine Scrn NEGATIVE Ur Amphetamine Screen NEGATIVE U Methamphetamines Scrn NEGATIVE U Benzodiazepines Scrn NEGATIVE Urine Cocaine Screen NEGATIVE U Cannabinoids Screen NEGATIVE Ethyl Alcohol - Rads (name of study) Head CT Radiology: Final report received, See rad report Cervical spine CT Radiology: Final report received, See rad report PD Medical Decision Making - ED course Complexity details: reviewed results, re-evaluated patient, considered differential, d/w patient, d/w family ED course: 61-year-old female with a history of bipolar affective disorder. Had she apparently had been on the ground for 2 days. Her friends gave her her antipsychotic medication last night. There is no evidence of withdrawal today. Patient was given IV fluids here. Eating and drinking without difficulty. She does have a baseline tremor that the daughter confirms is chronic. She is slightly off balance when she walks, so she was given a walker and is walking quite well. Does have a mild elevation of her CK, normal creatinine. This should continue to decrease after IV fluids. She has a superficial sacral decubitus ulcer. This was bandaged. Family and patient will follow-up closely with her doctor for further care. Her daughter will stay with her. Information was given by regarding caregivers and home health to help take care of her at home. Daughter was also given information for the VOA/D P if she feels that the patient is having a mental health crisis. No acute findings on head CT or cervical spine CT. Her CBC does not show any significant abnormalities. Minimal anemia. Her ER abdominal panel is significant for a mild AST elevation at 124. Elevated BUN to creatinine ratio consistent with dehydration. Normal TSH. Elevated CK, but below the 3000 level needed for hospital admission per our hospitalist here. Mild ketonuria. Tox screen is negative other than tricyclics. Patient and family counseled regarding signs and symptoms for which I believe and urgent re-evaluation would be necessary. Patient with good understanding of and agreement to plan and is comfortable going home at this time This document was made in part using voice recognition software. While efforts are made to proofread this document, sound alike and grammatical errors may occur. Departure - Departure Disposition: 01 Home, Self Care Clinical Impression: Ground-level fall, Dehydration Bipolar affective disorder Qualifiers: Active/Remission status: remission status unspecified Qualified Code(s): F31.9 - Bipolar disorder, unspecified Sacral decubitus ulcer Qualifiers: Pressure injury stage: unspecified pressure injury stage Qualified Code(s): L89.159 - Pressure ulcer of sacral region, unspecified stage Condition: Good Instructions: ED Pressure Injury, ED Dehydration Follow-Up: Savannah Coleman ARNP [Primary Care Provider] - Within 3 Days Comments: Please discuss her medications with her doctor. These may be causing oversedat ion and drowsiness. If you feel that she is having severe mental health issues at home, you can call the crisis line to have a DCR/DMHP dispatched directly to the home to evaluate her. Please discuss with your doctor home health/caregivers to help with her care as well. She needs to have the pressure ulcer rechecked by her doctor near the end of the week. Return if she worsens. Crisis Line and is available to talk to someone or have a DCR dispatched [email or web address] is also available to chat with someone online if you prefer. There are also many resources on this website and apps for your phone to help with your mental health You can also text the word START to [phone] to chat with someome via text. Discharge Date/Time: 10/29/22 16:43
[2022-10-29 13:54] LABS: GLUCOSE, URINE (UA) NEGATIVE (NEGATIVE); KETONES,URINE (UA) 40 mg/dL (NEGATIVE); LEUKOCYTE ESTERASE, URINE NEGATIVE (NEGATIVE); NITRITE,URINE NEGATIVE (NEGATIVE); OCCULT BLOOD,URINE MODERATE (NEGATIVE); PROTEIN,URINE TRACE mg/dL (NEGATIVE); UROBILINOGEN,URINE 0.2 (NORMAL) E.U./dL (NORMAL)
[2022-10-29 13:55] LABS: BILIRUBIN,URINE NEGATIVE (NEGATIVE); CLARITY,URINE HAZY (CLEAR); ICTOTEST,URINE NEGATIVE
[2022-10-29 14:01] LABS: BACTERIA,URINE Rare /HPF (None Seen); SQUAMOUS EPITHELIAL CELL,UR RARE Squamous (<= Few)
[2022-10-29 14:08] LABS: AMPHETAMINE SCREEN,URINE NEGATIVE (NEGATIVE); BARBITURATE SCREEN,UR NEGATIVE (NEGATIVE); BENZODIAZEPINES SCREEN, URINE NEGATIVE (NEGATIVE); COCAINE SCREEN URINE NEGATIVE (NEGATIVE); METHADONE SCREEN, URINE NEGATIVE (NEGATIVE); METHAMPHETAMINES SCREEN, URINE NEGATIVE (NEGATIVE); OPIATE SCREEN, URINE NEGATIVE (NEGATIVE); OXYCODONE SCREEN, URINE NEGATIVE (NEGATIVE); PROPOXYPHENE SCREEN, URINE NEGATIVE (NEGATIVE); THC CANNABINOID SCREEN, URINE NEGATIVE (NEGATIVE); TRICYCLIC ANTIDEPRESSANT,URINE POSITIVE (NEGATIVE)
[2022-10-29 16:44] VITALS: BP 114/68
== END 2022-10-29 16:43 | disposition home or self-care (01) ==
LOC: EDUNIT# → ED 12:02
DX: F31.9 Bipolar disorder, unspecified (principal); E86.0 Dehydration; L89.159 Pressure ulcer of sacral region, unspecified stage
CPT/HCPCS: 36415; 51701; 70450; 72125; 80053; 80306; 80307; 81001; 82550; 83690; 84443; 85025; 96360; 96361; 99284; G0480; 80320; 80329; 81003; 87086

== ENCOUNTER 2022-11-10 09:00 | Outpatient (CLI) | payer MEDICARE ==
--- NOTE | 2022-11-10 21:18 | XRAY Report ---
PROCEDURE: Toe(s) RT INDICATIONS: WOUND OF RIGHT 2ND TOE TECHNIQUE: 3 views of the right second toe(s) acquired. COMPARISON: None FINDINGS: Bones: No fractures or dislocations. No suspicious bony lesions. Soft tissues: No suspicious soft tissue densities. IMPRESSION: No acute abnormality. No radiographic evidence of osteomyelitis. Reviewed by: Kelby Collado on 11/10/2022 8:16 PM LIZZIE Approved by: Kelby Collado on 11/10/2022 8:16 PM [facility] Station ID: [id number]
== END 2022-11-10 23:59 | disposition home or self-care (01) ==
LOC: DI.S 09:00
PROVIDERS: ATTEND Nurse Practitioner Family
DX: S91.101D Unspecified open wound of right great toe without damage to nail, subsequent encounter (principal)